=== PATIENT | male | born 1985 | race Caucasian/White ===

== ENCOUNTER 2021-09-25 10:39 | Inpatient (IN) | payer MEDICAID, OTHER ==
[~2021-09-25] VITALS: Ht 177.8 cm; Wt 88.8 kg
[2021-09-25] MEDS ORDERED: cefTRIAXone 1GM/50ML D5W 50 ML IV ONE (11:15)
[2021-09-25] MEDS ORDERED: SODIUM CHLORIDE 0.9% 1,000 ML IV ONE (11:15)
[2021-09-25 11:44] LABS: Albumin 3.9 g/dL (3.4-5.0); BUN/Creatinine Ratio 19.1; Calcium 9.9 mg/dL (8.5-10.1); Potassium 4.2 mmol/L (3.5-5.1)
[2021-09-25 11:47] LABS: Bilirubin, Total 0.9 mg/dL (0.2-1.0); Total Protein 8.5 g/dL (6.4-8.2)
[2021-09-25] MEDS ORDERED: CLINDAMYCIN 600MG IV 50 ML IV ONE (14:15)
[2021-09-25] MEDS ORDERED: ONDANSETRON HCL 4 MG/2 ML VIAL IV ONE (15:45)
[2021-09-25] MEDS ORDERED: MORPHINE SULFATE 4 MG/ML SYR/VIAL IV ONE (15:45)
[2021-09-25] MEDS ORDERED: DexAMETHasone SOD PHOS 10MG/1ML VIAL INJ IV ONE (16:30)
[2021-09-25] MEDS ORDERED: KETOROLAC TROMETH 30 MG/ML 1ML VIAL IV PRN (16:30)
[2021-09-25] MEDS ORDERED: hydrALAZINE HCL 20 MG/ML VL IV PRN (16:45)
[2021-09-25] MEDS ORDERED: NICOTINE 7MG/24HR TOPICAL PATCH TD ONE (17:00)
[2021-09-25 17:12] VITALS: BP 141/84
[2021-09-25 18:09] VITALS: BP 141/84
[2021-09-25] MEDS: SODIUM CHLORIDE 0.9% 1,000 ML IV SCH ×2 (18:10→22:51)
[2021-09-25] MEDS: KETOROLAC TROMETH 30 MG/ML 1ML VIAL IV PRN ×2 (18:11→23:54)
[2021-09-25 22:00] VITALS: BP 132/73
[2021-09-25] MEDS: CLINDAMYCIN 600MG IV 50 ML IV SCH (22:40)
[2021-09-26] VITALS (7 sets, daily range): BP systolic 138–159; BP diastolic 89–99
[2021-09-26] MEDS: CLINDAMYCIN 600MG IV 50 ML IV SCH ×3 (05:39→22:14)
[2021-09-26] MEDS: SODIUM CHLORIDE 0.9% 1,000 ML IV SCH ×2 (08:30→11:50)
[2021-09-26] MEDS: NICOTINE 7MG/24HR TOPICAL PATCH TD SCH (09:27)
[2021-09-26] MEDS: cefTRIAXone 1GM/50ML D5W 50 ML IV SCH (09:27)
[2021-09-26 10:35] LABS: Basophils # (auto) 0 10 ^3/uL (0-0.2); Basophils % (auto) 0.1 % (0.0-2.0); Eosinophils # (auto) 0 10 ^3/uL (0-0.8); Hematocrit 48.4 % (41.0-53.0); Hemoglobin 16.3 g/dL (13.5-17.5); Lymphocytes # (auto) 1.2 10 ^3/uL (0.4-5.4); Mean Corpuscular Hemoglobin 31.4 pg (28.0-32.0); Mean Corpuscular Hgb Conc. 33.7 g/dL (32.0-36.0); Mean Corpuscular Volume 93.3 fL (80.0-100.0); Monocytes # (auto) 2.2 10 ^3/uL (0-1.3); Monocytes % (auto) 12.9 % (0.0-12.0); Neutrophils # (auto) 13.7 10 ^3/uL (1.6-8.6); Nucleated Red Blood Cells % 0.1 %; Red Blood Cells 5.19 10^6/uL (4.5-5.90); Red Cell Distribution Width 13.7 % (11.8-14.3); White Blood Cell 17.2 10^3/uL (4.4-10.8)
[2021-09-26 10:53] LABS: Calcium 8.7 mg/dL (8.5-10.1); Potassium 4.6 mmol/L (3.5-5.1)
[2021-09-26 10:57] LABS: BUN/Creatinine Ratio 20.7; Bilirubin, Total 0.6 mg/dL (0.2-1.0); Total Protein 7.7 g/dL (6.4-8.2)
[2021-09-26] MEDS ORDERED: ONDANSETRON HCL 4 MG/2 ML VIAL IV PRN (17:15)
[2021-09-26] MEDS ORDERED: ONDANSETRON HCL 4 MG/2 ML VIAL IV ONE (17:15)
[2021-09-27] MEDS: SODIUM CHLORIDE 0.9% 1,000 ML IV SCH ×2 (00:50→08:30)
[2021-09-27 05:00] VITALS: BP 137/77
[2021-09-27] MEDS: CLINDAMYCIN 600MG IV 50 ML IV SCH (05:28)
[2021-09-27 09:00] VITALS: BP 122/98
[2021-09-27] MEDS ORDERED: CEPH500C PO (09:37)
[2021-09-27] MEDS ORDERED: HYDR-4902 PO (09:37)
[2021-09-27] MEDS ORDERED: CLIN-203 PO (09:37)
[2021-09-27] MEDS: cefTRIAXone 1GM/50ML D5W 50 ML IV SCH (09:39)
[2021-09-27] MEDS: NICOTINE 7MG/24HR TOPICAL PATCH TD SCH (09:40)
== END 2021-09-27 13:20 | disposition home or self-care (01) | DRG 720 ==
LOC: ER 10:39 → OVERFLOW 16:20 → EAST 17:13
PROVIDERS: ADMIT Registered Nurse; ATTEND Registered Nurse
DX: A40.0 Sepsis due to streptococcus, group A (principal); E86.0 Dehydration; J36 Peritonsillar abscess; F17.210 Nicotine dependence, cigarettes, uncomplicated; I10 Essential (primary) hypertension; R07.0 Pain in throat; Z20.822 Contact with and (suspected) exposure to COVID-19; Z71.6 Tobacco abuse counseling
CPT/HCPCS: 36415; 70490; 80053; 85025; 87040; 87804; 87880; 96360; 96365; 96368; 96375; G0378; J0696; J1100; J1885; J2405; J3490